=== PATIENT | female | born 1950 ===

== ENCOUNTER 2020-06-20 17:55 | Inpatient (IN) | payer MEDICARE, OTHER ==
[2020-06-20 20:23] VITALS: BMI 22.4
[2020-06-20] MEDS ORDERED: Acetaminophen 325 MG TAB PO PRN (21:48)
--- NOTE | 2020-06-20 21:57 | PDOC.HHP ---
Hospitalist HPI - History of Present Illness Shortness of breath and malaise History of Present Illness: 70-year-old woman with a history of crest syndrome, COPD was referred from her PCPs office to be directly admitted because patient tested positive for COVID. Patient report being exposed to someone with COVID-19 at work. She states that she has been experiencing general malaise, easy fatigability, increased coughing and shortness of breath for about 5 days. She went to see her PCP, had a chest x-ray done which suggested bilateral infiltrates. She tested positive for COVID-19. CTA thorax done at the office confirmed bilateral groundglass opacities consistent with COVID-19 infection. Patient was then transferred here to be directly admitted. She stated her oxygen saturation was 88% on room air in the office. At baseline she uses 2 L of oxygen at night. Hospitalist ROS - Review of Systems Other: Except as documented, all other systems reviewed and negative. - Medication Medications: Medication Instructions Recorded Confirmed Type Albuterol Sulfate [Proair HFA] 2 puff INH Q6HR PRN 06/20/20 06/20/20 History Atorvastatin Calcium [Lipitor] 40 mg PO HS 06/20/20 06/20/20 History Clobetasol [Temovate 0.05% Cream] 1 applic TOP BID 06/20/20 06/20/20 History Doxepin HCl [Sinequan] 20 mg PO HS 06/20/20 06/20/20 History Escitalopram Oxalate [Lexapro] 20 mg PO DAILY 06/20/20 06/20/20 History Estrogens, Conjugated [Premarin] 0.5 tablet PO HS 06/20/20 06/20/20 History Hydroxychloroquine Sulfate 200 mg PO BID 06/20/20 06/20/20 History [Plaquenil] Hyoscyamine Sulfate [Hyoscyamine 0.375 mg PO DAILY 06/20/20 06/20/20 History Sulfate ER] Ibuprofen 800 mg PO BID 06/20/20 06/20/20 History Levothyroxine Sodium [Synthroid] 100 mcg PO DAILY 06/20/20 06/20/20 History NIFEdipine [Nifedipine ER] 30 mg PO DAILY 06/20/20 06/20/20 History Trimethoprim 100 mg PO HS 06/20/20 06/20/20 History tiZANidine HCl [Tizanidine HCl] 4 mg PO HS PRN 06/20/20 06/20/20 History traZODone HCl [Trazodone HCl] 100 mg PO HS 06/20/20 06/20/20 History Hospitalist History - Past Medical History Other Medical History: COPD, chronic respiratory failure with hypoxia, crest syndrome, hypertension, hypothyroidism, hyperlipidemia. - Past Surgical History Past Surgical History: reports: Hysterectomy - Family History Family History: reports: cardiac disorder (Mother) - Social History Smoking Status: Former smoker Alcohol: reports: None Drugs: reports: none Living Situation: With Family - Exam General Appearance: NAD, awake alert Eye: PERRL, anicteric sclera ENT: normocephalic atraumatic, no oropharyngeal lesions, moist mucosa Neck: supple, symmetric Heart: RRR, no murmur, no gallops Respiratory: no wheezes Respiratory - other findings: Mild bibasilar Rales. Gastrointestinal: soft, non-tender, non-distended, normal bowel sounds Extremities: no cyanosis, no edema Skin: normal turgor Neurological: cranial nerve grossly intact, no weakness, no focal deficits Musculoskeletal: normal tone, normal strength Psychiatric: normal affect, normal behavior, A&O x 3 Hospitalist Results - Labs Additional comment: WBC 7.2, hemoglobin 13.2, platelet 162. Sodium 132, potassium 4.6, CO2 24, glucose 102, BUN 13, creatinine 1.1 - Radiology Interpretation CT scan - chest Status: report reviewed by me (Bilateral groundglass opacities. Emphysematous lungs. No evidence of PE.) Hospitalist H&P A/P - Problem (1) Acute and chronic respiratory failure with hypoxia Code(s): J96.21 - ACUTE AND CHRONIC RESPIRATORY FAILURE WITH HYPOXIA Status: Acute (2) Pneumonia due to COVID-19 virus Code(s): U07.1 - COVID-19; J12.89 - OTHER VIRAL PNEUMONIA Status: Acute (3) COPD (chronic obstructive pulmonary disease) Status: Acute (4) CREST syndrome Code(s): M34.1 - CR(E)ST SYNDROME Status: Acute (5) Hypertension Code(s): I10 - ESSENTIAL (PRIMARY) HYPERTENSION Status: Acute (6) Hypothyroidism Code(s): E03.9 - HYPOTHYROIDISM, UNSPECIFIED Status: Acute - Plan Plan: Placed under observation. Titrate oxygen as needed Start oral dexamethasone Scheduled bronchodilator inhalers. Check procalcitonin, ferritin, CRP for baseline studies. Droplet isolation Continue hydroxychloroquine for crest syndrome. Continue other home medications for hypertension and hypothyroidism.
[2020-06-20] MEDS ORDERED: tiZANidine HCl 4 MG TAB PO PRN (23:18)
[2020-06-21] MEDS: Albuterol 200 PUFF (6.7GM INHALER) INH SCH ×4 (01:04→18:11)
--- NOTE | 2020-06-21 05:51 | PDOC.FMACP ---
Advance Care Planning - Problem (1) Acute and chronic respiratory failure with hypoxia Status: Acute Code(s): J96.21 - ACUTE AND CHRONIC RESPIRATORY FAILURE WITH HYPOXIA (2) Pneumonia due to COVID-19 virus Status: Acute Code(s): U07.1 - COVID-19; J12.89 - OTHER VIRAL PNEUMONIA (3) COPD (chronic obstructive pulmonary disease) Status: Acute (4) CREST syndrome Status: Acute Code(s): M34.1 - CR(E)ST SYNDROME (5) Hypertension Status: Acute Code(s): I10 - ESSENTIAL (PRIMARY) HYPERTENSION (6) Hypothyroidism Status: Acute Code(s): E03.9 - HYPOTHYROIDISM, UNSPECIFIED - Note Summary: Advanced Care Planning was discussed. The diagnosis, prognosis and goals of care were discussed. Appropriate forms and documentation to accomplish the goals of care were discussed. All questions were answered. Patient is full code. Time Spent (mins): 16
[2020-06-21] MEDS: Levothyroxine Sodium 100 MCG TAB PO SCH (06:01)
[2020-06-21 06:11] LABS: #Lymphocytes 0.4 thou/uL (1.20-3.40); #Monocytes 0.4 thou/uL (0.11-0.59); #Neutrophils 2.1 thou/uL (1.40-6.50); %Basophils 0.7 % (0.0-1.0); %Eosinophils 0.1 % (0.0-10.0); %Lymphocytes 14.1 % (21.0-51.0); %Monocytes 13.1 % (0.0-10.0); %Neutrophils 72.1 % (42.0-75.0); Hemoglobin 12.6 g/dL (12.0-16.0); Mean Corpuscular HGB CONC 34.1 g/dL (32.0-36.0); Mean Corpuscular Hemoglobin 36.3 pg (27.0-31.0); Mean Platelet Volume 9.4 fL (7.4-10.4); Platelet Count 174 thou/uL (130-400); RBC Distribution Width 11.5 % (11.5-14.5); Red Blood Cell (RBC) Count 3.47 mill/uL (4.20-5.40)
[2020-06-21 06:13] LABS: Anion Gap 16 mmol/L (10-20); BUN (Urea Nitrogen) 12 mg/dL (9.8-20.1); Calc. Creatinine Clearance 59 mL/min (70-130); Calcium 9.1 mg/dL (7.8-10.44); Carbon Dioxide 22 mmol/L (23-31); Chloride 105 mmol/L (98-107); Estimated GFR-MDRD 65; Glucose 125 mg/dL (80-115); Potassium 4.6 mmol/L (3.5-5.1); Sodium 138 mmol/L (136-145)
[2020-06-21] MEDS: Zinc Sulfate 220 MG CAP PO SCH (08:08)
[2020-06-21] MEDS: Dexamethasone 4 MG TAB PO SCH (08:08)
[2020-06-21] MEDS: Hyoscyamine Sulfate ER 0.375 mg Tablet PO SCH (08:08)
[2020-06-21] MEDS: Hydroxychloroquine Sulfate 200 MG TAB PO SCH ×2 (08:09→21:44)
[2020-06-21] MEDS: Ascorbic Acid 500 mg Chewable Tablet PO SCH (08:09)
[2020-06-21] MEDS: Escitalopram Oxalate 20 mg Tablet PO SCH (08:09)
[2020-06-21] MEDS ORDERED: Enoxaparin Sodium 40 MG/0.4 ML SYRINGE SC SCH (09:00)
[2020-06-21] MEDS ORDERED: Cholecalciferol (Vitamin D3) 400 UNITS TAB PO SCH (09:00)
[2020-06-21] MEDS: NIFEdipine XL 30 MG TAB PO SCH (09:47)
[2020-06-21 14:01] LABS: ALT (SGPT) 12 U/L (8-55); AST (SGOT) 27 U/L (5-34); Albumin 3.7 g/dL (3.4-4.8); Alkaline Phosphatase 80 U/L (40-110); Bilirubin, Direct 0.2 mg/dL (0.1-0.3); Bilirubin, Total 0.4 mg/dL (0.2-1.2); Protein, Total 7.1 g/dL (6.0-8.3)
--- NOTE | 2020-06-21 14:51 | PDOC.HOSPP ---
- Subjective Encounter Date: 06/21/20 Encounter Time: 08:30 Subjective: Patient seen for follow-up for COVID-19 pneumonia. She reports feeling better. Slight cough, nonproductive. - Objective Vital Signs & Weight: Vital Signs (12 hours) Temp Pulse Resp BP BP Pulse Ox 06/21/20 09:47 97.9 F 69 18 134/77 134/77 95 Weight Admit Weight 135 lb Weight 135 lb I&O: 06/20/20 06/21/20 06/22/20 06:59 06:59 06:59 Intake Total 800 Balance 800 Result Diagrams: 06/21/20 05:10 06/21/20 05:10 Additional Labs: I reviewed patient's labs and [facility] Hospitalist ROS - Review of Systems Respiratory: reports: cough, dry. denies: shortness of breath, hemoptysis, SOB with excertion, pleuritic pain, sputum, wheezing Cardiovascular: denies: chest pain, palpitations, orthopnea, paroxysmal noc. dyspnea, edema, light headedness Gastrointestinal: denies: nausea, vomiting, abdominal pain, diarrhea, constipation, melena, hematochezia Genitourinary: denies: dysuria, frequency, incontinence, hematuria, retention Skin: denies: rash, lesions, nia, bruising - Medication Medications: Active Medications Generic Name Dose Route Start Last Admin Trade Name Freq PRN Reason Stop Dose Admin Albuterol Sulfate 2 puff 06/21/20 01:00 06/21/20 13:00 Albuterol 200 Puff (6.7gm Inhaler) INH 2 puff [id number] ALY Administration Ascorbic Acid 1,000 mg 06/21/20 09:00 06/21/20 08:09 Ascorbic Acid 500 Mg Chewable Tablet PO 1,000 mg DAILY ALY Administration Cholecalciferol 1,000 units 06/21/20 09:00 06/21/20 08:07 Cholecalciferol (Vitamin D3) 400 Units Tab PO 1,000 units DAILY ALY Administration Dexamethasone 6 mg 06/21/20 08:00 06/21/20 08:08 Dexamethasone 4 Mg Tab PO 6 mg QAM-WM ALY Administration Escitalopram Oxalate 20 mg 06/21/20 09:00 06/21/20 08:09 Escitalopram Oxalate 20 Mg Tablet PO 20 mg DAILY ALY Administration Hydroxychloroquine Sulfate 200 mg 06/21/20 09:00 06/21/20 08:09 Hydroxychloroquine Sulfate 200 Mg Tab PO 200 mg BID ALY Administration Hyoscyamine Sulfate 0.375 mg 06/21/20 09:00 06/21/20 08:08 Hyoscyamine Sulfate Er 0.375 Mg Tablet PO 0.375 mg DAILY ALY Administration Levothyroxine Sodium 100 mcg 06/21/20 06:00 06/21/20 06:01 Levothyroxine Sodium 100 Mcg Tab PO 100 mcg 0600 ALY Administration Nifedipine 30 mg 06/21/20 09:00 06/21/20 09:47 Nifedipine Xl 30 Mg Tab PO 30 mg DAILY ALY Administration Zinc Sulfate 220 mg 06/21/20 09:00 06/21/20 08:08 Zinc Sulfate 220 Mg Cap PO 220 mg DAILY ALY Administration - Exam General Appearance: awake alert Eye: anicteric sclera ENT: moist mucosa Neck: supple, symmetric, no thyromegaly, no lymphadenopathy Heart: RRR, no gallops, no rubs, normal peripheral pulses Respiratory: CTAB, no rales, no ronchi, normal chest expansion Gastrointestinal: soft, non-tender, non-distended, normal bowel sounds Skin: no rashes Psychiatric: normal affect, normal behavior, A&O x 3 Hosp A/P (1) Pneumonia due to COVID-19 virus Code(s): U07.1 - COVID-19; J12.89 - OTHER VIRAL PNEUMONIA Status: Acute (2) Acute on chronic respiratory failure with hypoxia Code(s): J96.21 - ACUTE AND CHRONIC RESPIRATORY FAILURE WITH HYPOXIA Status: Acute (3) COPD (chronic obstructive pulmonary disease) Status: Chronic (4) CREST syndrome Code(s): M34.1 - CR(E)ST SYNDROME Status: Chronic (5) Hypertension Code(s): I10 - ESSENTIAL (PRIMARY) HYPERTENSION Status: Chronic (6) Hypothyroidism Code(s): E03.9 - HYPOTHYROIDISM, UNSPECIFIED Status: Chronic - Plan Patient has been started on dexamethasone 6 mg daily, continue. Continue vitamin C thousand milligrams daily and zinc 220 mg daily. Continue Synthroid. Supplemental oxygen as needed, patient uses 2 L of oxygen at home but only at nighttime. Hypertension is controlled. Infectious disease service consulted for opinion and help with management.
[2020-06-21] MEDS ORDERED: REMDESIVIR (EUA) 200 MG in Sodium Chloride 0.9% 250 ML 210 ML IV SCH (18:00)
--- NOTE | 2020-06-21 20:24 | CON ---
DATE OF CONSULTATION: 06/21/2020 REASON FOR CONSULTATION: COVID infection. HISTORY OF PRESENT ILLNESS: A 70-year-old with history of CREST syndrome, COPD, who developed symptoms of cough, respiratory distress, exercise intolerance for the past 4 to 5 days. Had a chest x-ray and tested positive for COVID-19. CTA showed ground-glass opacities and she has been admitted. O2 saturations on arrival 88% on room air. She usually uses 2 L of oxygen at night for sleep. MEDICAL HISTORY: COPD, CREST syndrome, hypertension, hypothyroidism, hyperlipidemia. PAST SURGICAL HISTORY: Hysterectomy. FAMILY HISTORY: Noncontributory. SOCIAL HISTORY: Works at the [employer]. Former smoker. Does not drink. Lives in with family. CURRENT MEDICATIONS: 1. Proventil. 2. Vitamin C and D. 3. Decadron. 4. Sinequan. 5. Lovenox b.i.d. 6. Lexapro. 7. Plaquenil. 8. Synthroid. 9. Procardia. 10. Pneumovax. 11. Zanaflex. 12. Desyrel. 13. Trimethoprim. 14. Zinc sulfate. ALLERGIES: CHEESE AND METHOCARBAMOL. PHYSICAL EXAMINATION: VITAL SIGNS: Afebrile since admission, O2 saturation 95% on 2 L, heart rate 69, blood pressure 130/70. GENERAL: Does not appear in distress. SKIN: Normal. LYMPHATIC: No lymphadenopathy. HEENT: Ocular movements conjugate. Oral cavity normal. NECK: Supple. LUNGS: Symmetric. Clear breath sounds. HEART: S1 and S2. Regular rate without murmurs. No S3 or S4. ABDOMEN: Soft. Not distended or tender. No ascites. No bladder distention. EXTREMITIES: No joint inflammatory activity. Skin appears pretty normal. She has a little bit of stasis dermatitis. The areas of hyperpigmentation in extensor aspect of the extremities. NEUROLOGIC: Cognitive function appears to be intact. Neuro examination normal. LABORATORY DATA: White cell count 3.0, hemoglobin 12.6, MCV 106, platelet count 174 with lymphocytopenia 0.4. D-dimer 2.0. Ferritin wnl. CRP 8.56. Procalcitonin 0.06. CT chest with ground-glass opacities. I do not have the images here to review. ASSESSMENT AND PLAN: CREST syndrome, chronic obstructive pulmonary disease, COVID infection [id number] course. We will start remdesivir, daily labs. Continue Decadron. Enoxaparin prophylaxis. [address] consortium mortality score is around 05/07. This is an intermediate category. Job ID: [id number] [facility]
[2020-06-21] MEDS: Doxepin HCl 10 MG CAP PO SCH (21:43)
[2020-06-21] MEDS: Enoxaparin Sodium 40 MG/0.4 ML SYRINGE SC SCH (21:44)
[2020-06-21] MEDS: traZODone HCl 50 MG TAB PO SCH (21:44)
[2020-06-22] MEDS: Albuterol 200 PUFF (6.7GM INHALER) INH SCH ×4 (01:21→19:58)
[2020-06-22] MEDS: Levothyroxine Sodium 100 MCG TAB PO SCH (05:27)
[2020-06-22 06:22] LABS: ALT (SGPT) 11 U/L (8-55); AST (SGOT) 19 U/L (5-34); Albumin 3.5 g/dL (3.4-4.8); Alkaline Phosphatase 71 U/L (40-110); Bilirubin, Direct 0.1 mg/dL (0.1-0.3); Bilirubin, Total 0.2 mg/dL (0.2-1.2); Protein, Total 6.6 g/dL (6.0-8.3)
[2020-06-22] MEDS: NIFEdipine XL 30 MG TAB PO SCH (09:18)
[2020-06-22] MEDS: Hyoscyamine Sulfate ER 0.375 mg Tablet PO SCH (09:18)
[2020-06-22] MEDS: Cholecalciferol 1,000 UNITS (25 MCG) TAB PO SCH (09:19)
[2020-06-22] MEDS: Ascorbic Acid 500 mg Chewable Tablet PO SCH (09:19)
[2020-06-22] MEDS: Hydroxychloroquine Sulfate 200 MG TAB PO SCH ×2 (09:21→19:59)
[2020-06-22] MEDS: Zinc Sulfate 220 MG CAP PO SCH (09:21)
[2020-06-22] MEDS: Escitalopram Oxalate 20 mg Tablet PO SCH (09:21)
[2020-06-22] MEDS: Dexamethasone 4 MG TAB PO SCH (09:21)
[2020-06-22] MEDS: Enoxaparin Sodium 40 MG/0.4 ML SYRINGE SC SCH ×2 (09:22→19:59)
[2020-06-22 10:07] LABS: Anion Gap 13 mmol/L (10-20); BUN (Urea Nitrogen) 18 mg/dL (9.8-20.1); CRP (Inflammatory) 2.98 mg/dL (= or < 0.5); Calc. Creatinine Clearance 62 mL/min (70-130); Calcium 8.8 mg/dL (7.8-10.44); Carbon Dioxide 25 mmol/L (23-31); Chloride 107 mmol/L (98-107); Estimated GFR-MDRD 68; Glucose 99 mg/dL (80-115); Potassium 3.9 mmol/L (3.5-5.1); Sodium 141 mmol/L (136-145)
--- NOTE | 2020-06-22 14:34 | PDOC.HOSPP ---
- Subjective Encounter Date: 06/22/20 Encounter Time: 11:20 Subjective: Patient seen for follow-up regarding COVID-19 pneumonia. Reports feeling well. - Objective Vital Signs & Weight: Vital Signs (12 hours) Pulse Pulse Ox 06/22/20 09:18 70 06/22/20 09:00 95 Weight Admit Weight 135 lb Weight 135 lb I&O: 06/21/20 06/22/20 06/23/20 06:59 06:59 06:59 Intake Total 800 1850 Balance 800 1850 Result Diagrams: 06/21/20 05:10 06/22/20 09:34 Additional Labs: I reviewed patient's labs and [facility] Hospitalist ROS - Review of Systems Respiratory: denies: cough, shortness of breath, SOB with excertion, pleuritic pain, wheezing Cardiovascular: denies: chest pain, palpitations, orthopnea, paroxysmal noc. dyspnea, edema, light headedness - Medication Medications: Active Medications Generic Name Dose Route Start Last Admin Trade Name Freq PRN Reason Stop Dose Admin Albuterol Sulfate 2 puff 06/21/20 01:00 06/22/20 05:28 Albuterol 200 Puff (6.7gm Inhaler) INH 2 puff [id number] ALY Administration Ascorbic Acid 1,000 mg 06/21/20 09:00 06/22/20 09:19 Ascorbic Acid 500 Mg Chewable Tablet PO 1,000 mg DAILY ALY Administration Cholecalciferol 1,000 units 06/22/20 09:00 06/22/20 09:19 Cholecalciferol 1,000 Units (25 Mcg) Tab PO 1,000 units DAILY ALY Administration Dexamethasone 6 mg 06/21/20 08:00 06/22/20 09:21 Dexamethasone 4 Mg Tab PO 6 mg QAM-WM ALY Administration Doxepin HCl 20 mg 06/21/20 21:00 06/21/20 21:43 Doxepin Hcl 10 Mg Cap PO 20 mg HS ALY Administration Enoxaparin Sodium 40 mg 06/21/20 21:00 06/22/20 09:22 Enoxaparin Sodium 40 Mg/0.4 Ml Syringe SC 40 mg 0900,2100 ALY Administration Escitalopram Oxalate 20 mg 06/21/20 09:00 06/22/20 09:21 Escitalopram Oxalate 20 Mg Tablet PO 20 mg DAILY ALY Administration Hydroxychloroquine Sulfate 200 mg 06/21/20 09:00 06/22/20 09:21 Hydroxychloroquine Sulfate 200 Mg Tab PO 200 mg BID ALY Administration Hyoscyamine Sulfate 0.375 mg 06/21/20 09:00 06/22/20 09:18 Hyoscyamine Sulfate Er 0.375 Mg Tablet PO 0.375 mg DAILY ALY Administration Levothyroxine Sodium 100 mcg 06/21/20 06:00 06/22/20 05:27 Levothyroxine Sodium 100 Mcg Tab PO 100 mcg 0600 ALY Administration Nifedipine 30 mg 06/21/20 09:00 06/22/20 09:18 Nifedipine Xl 30 Mg Tab PO 30 mg DAILY ALY Administration Trazodone HCl 100 mg 06/21/20 21:00 06/21/20 21:44 Trazodone Hcl 50 Mg Tab PO 100 mg HS ALY Administration Trimethoprim 100 mg 06/21/20 21:00 06/21/20 21:44 Trimethoprim 100 Mg Tab PO 100 mg HS ALY Administration Zinc Sulfate 220 mg 06/21/20 09:00 06/22/20 09:21 Zinc Sulfate 220 Mg Cap PO 220 mg DAILY ALY Administration - Exam General Appearance: awake alert Eye: anicteric sclera ENT: moist mucosa Neck: supple Heart: RRR Respiratory: CTAB Gastrointestinal: soft, non-tender Extremities: no cyanosis Skin: normal turgor Psychiatric: normal affect, normal behavior Hosp A/P (1) Pneumonia due to COVID-19 virus Code(s): U07.1 - COVID-19; J12.89 - OTHER VIRAL PNEUMONIA Status: Acute (2) Acute on chronic respiratory failure with hypoxia Code(s): J96.21 - ACUTE AND CHRONIC RESPIRATORY FAILURE WITH HYPOXIA Status: Acute (3) COPD (chronic obstructive pulmonary disease) Status: Chronic (4) CREST syndrome Code(s): M34.1 - CR(E)ST SYNDROME Status: Chronic (5) Hypertension Code(s): I10 - ESSENTIAL (PRIMARY) HYPERTENSION Status: Chronic (6) Hypothyroidism Code(s): E03.9 - HYPOTHYROIDISM, UNSPECIFIED Status: Chronic - Plan Continue dexamethasone, vitamin C and zinc. Patient has been started on Remdesivir. Continue Synthroid. Supplemental oxygen as needed. Hypertension is controlled. Appreciate infectious disease service input.
[2020-06-22] MEDS: REMDESIVIR (EUA) 100 MG in Sodium Chloride 0.9% 250 ML 230 ML IV SCH (18:36)
[2020-06-22] MEDS: Doxepin HCl 10 MG CAP PO SCH (19:58)
[2020-06-22] MEDS: traZODone HCl 50 MG TAB PO SCH (19:59)
[2020-06-23] MEDS: Albuterol 200 PUFF (6.7GM INHALER) INH SCH ×4 (00:28→19:38)
[2020-06-23] MEDS: Levothyroxine Sodium 100 MCG TAB PO SCH (05:47)
[2020-06-23 05:54] LABS: ALT (SGPT) 9 U/L (8-55); AST (SGOT) 19 U/L (5-34); Albumin 3.2 g/dL (3.4-4.8); Alkaline Phosphatase 70 U/L (40-110); Bilirubin, Direct 0.1 mg/dL (0.1-0.3); Bilirubin, Total 0.3 mg/dL (0.2-1.2); Protein, Total 6.2 g/dL (6.0-8.3)
[2020-06-23] MEDS: Escitalopram Oxalate 20 mg Tablet PO SCH (08:50)
[2020-06-23] MEDS: Hydroxychloroquine Sulfate 200 MG TAB PO SCH ×2 (08:50→19:40)
[2020-06-23] MEDS: Dexamethasone 4 MG TAB PO SCH (08:51)
[2020-06-23] MEDS: NIFEdipine XL 30 MG TAB PO SCH (08:51)
[2020-06-23] MEDS: Cholecalciferol 1,000 UNITS (25 MCG) TAB PO SCH (08:51)
[2020-06-23] MEDS: Hyoscyamine Sulfate ER 0.375 mg Tablet PO SCH (08:52)
[2020-06-23] MEDS: Ascorbic Acid 500 mg Chewable Tablet PO SCH (08:53)
[2020-06-23] MEDS: Enoxaparin Sodium 40 MG/0.4 ML SYRINGE SC SCH ×2 (08:53→19:39)
[2020-06-23] MEDS: Zinc Sulfate 220 MG CAP PO SCH (08:53)
[2020-06-23 09:42] LABS: Anion Gap 12 mmol/L (10-20); BUN (Urea Nitrogen) 20 mg/dL (9.8-20.1); CRP (Inflammatory) 1.94 mg/dL (= or < 0.5); Calc. Creatinine Clearance 62 mL/min (70-130); Carbon Dioxide 26 mmol/L (23-31); Chloride 105 mmol/L (98-107); Estimated GFR-MDRD 68; Glucose 76 mg/dL (80-115); Potassium 3.7 mmol/L (3.5-5.1); Sodium 139 mmol/L (136-145)
--- NOTE | 2020-06-23 17:49 | PDOC.HOSPP ---
- Subjective Encounter Date: 06/23/20 Encounter Time: 11:40 Subjective: Patient seen for follow-up regarding COVID-19 pneumonia. Denies any new complaints. - Objective Vital Signs & Weight: Vital Signs (12 hours) Temp Pulse Resp BP BP Pulse Ox 06/23/20 08:51 93 120/80 06/23/20 08:00 98.3 F 91 17 118/74 96 Weight Admit Weight 135 lb Weight 135 lb I&O: 06/22/20 06/23/20 06/24/20 06:59 06:59 06:59 Intake Total 1850 1520 Balance 1850 1520 Result Diagrams: 06/21/20 05:10 06/23/20 08:53 Additional Labs: I reviewed labs and MAR Hospitalist ROS - Review of Systems Respiratory: denies: cough, shortness of breath, SOB with excertion, pleuritic pain, wheezing Gastrointestinal: denies: nausea, vomiting, abdominal pain, diarrhea, constipation, melena, hematochezia Genitourinary: denies: dysuria, frequency, incontinence, hematuria, retention - Medication Medications: Active Medications Generic Name Dose Route Start Last Admin Trade Name Freq PRN Reason Stop Dose Admin Albuterol Sulfate 2 puff 06/21/20 01:00 06/23/20 12:35 Albuterol 200 Puff (6.7gm Inhaler) INH 2 puff [id number] ALY Administration Ascorbic Acid 1,000 mg 06/21/20 09:00 06/23/20 08:53 Ascorbic Acid 500 Mg Chewable Tablet PO 1,000 mg DAILY ALY Administration Cholecalciferol 1,000 units 06/22/20 09:00 06/23/20 08:51 Cholecalciferol 1,000 Units (25 Mcg) Tab PO 1,000 units DAILY ALY Administration Dexamethasone 6 mg 06/21/20 08:00 06/23/20 08:51 Dexamethasone 4 Mg Tab PO 6 mg QAM-WM ALY Administration Doxepin HCl 20 mg 06/21/20 21:00 06/22/20 19:58 Doxepin Hcl 10 Mg Cap PO 20 mg HS ALY Administration Enoxaparin Sodium 40 mg 06/21/20 21:00 06/23/20 08:53 Enoxaparin Sodium 40 Mg/0.4 Ml Syringe SC 40 mg 0900,2100 ALY Administration Escitalopram Oxalate 20 mg 06/21/20 09:00 06/23/20 08:50 Escitalopram Oxalate 20 Mg Tablet PO 20 mg DAILY ALY Administration Hydroxychloroquine Sulfate 200 mg 06/21/20 09:00 06/23/20 08:50 Hydroxychloroquine Sulfate 200 Mg Tab PO 200 mg BID ALY Administration Hyoscyamine Sulfate 0.375 mg 06/21/20 09:00 06/23/20 08:52 Hyoscyamine Sulfate Er 0.375 Mg Tablet PO 0.375 mg DAILY ALY Administration Remdesivir 100 mg/ Sodium 250 mls @ 250 mls/hr 06/22/20 18:00 06/22/20 18:36 Chloride IV 06/25/20 18:59 250 mls 1800 ALY Administration Levothyroxine Sodium 100 mcg 06/21/20 06:00 06/23/20 05:47 Levothyroxine Sodium 100 Mcg Tab PO 100 mcg 0600 ALY Administration Nifedipine 30 mg 06/21/20 09:00 06/23/20 08:51 Nifedipine Xl 30 Mg Tab PO 30 mg DAILY ALY Administration Trazodone HCl 100 mg 06/21/20 21:00 06/22/20 19:59 Trazodone Hcl 50 Mg Tab PO 100 mg HS ALY Administration Trimethoprim 100 mg 06/21/20 21:00 06/22/20 19:59 Trimethoprim 100 Mg Tab PO 100 mg HS ALY Administration Zinc Sulfate 220 mg 06/21/20 09:00 06/23/20 08:53 Zinc Sulfate 220 Mg Cap PO 220 mg DAILY ALY Administration - Exam General Appearance: awake alert Eye: anicteric sclera ENT: normocephalic atraumatic, moist mucosa Neck: supple, no thyromegaly Heart: RRR Respiratory: CTAB Gastrointestinal: soft, normal bowel sounds Extremities: no cyanosis Skin: no rashes Musculoskeletal: normal tone Psychiatric: normal affect, normal behavior Hosp A/P (1) Pneumonia due to COVID-19 virus Code(s): U07.1 - COVID-19; J12.89 - OTHER VIRAL PNEUMONIA Status: Acute (2) Acute on chronic respiratory failure with hypoxia Code(s): J96.21 - ACUTE AND CHRONIC RESPIRATORY FAILURE WITH HYPOXIA Status: Acute (3) CREST syndrome Code(s): M34.1 - CR(E)ST SYNDROME Status: Chronic (4) COPD (chronic obstructive pulmonary disease) Status: Chronic (5) Hypothyroidism Code(s): E03.9 - HYPOTHYROIDISM, UNSPECIFIED Status: Chronic (6) Hypertension Code(s): I10 - ESSENTIAL (PRIMARY) HYPERTENSION Status: Chronic - Plan Patient is currently on dexamethasone, vitamin C and zinc. Patient is also on Remdesivir, continue until June 25, 2020. Upper thyroidism stable Supplemental oxygen as needed. Hypertension is controlled. Home once Remdesivir therapy is complete and patient is clinically stable
[2020-06-23] MEDS: REMDESIVIR (EUA) 100 MG in Sodium Chloride 0.9% 250 ML 230 ML IV SCH (18:01)
[2020-06-23] MEDS: Doxepin HCl 10 MG CAP PO SCH (19:39)
[2020-06-23] MEDS: traZODone HCl 50 MG TAB PO SCH (19:40)
[2020-06-24] MEDS: Albuterol 200 PUFF (6.7GM INHALER) INH SCH ×4 (00:19→19:01)
[2020-06-24] MEDS: Levothyroxine Sodium 100 MCG TAB PO SCH (05:55)
[2020-06-24 07:12] LABS: ALT (SGPT) 16 U/L (8-55); AST (SGOT) 26 U/L (5-34); Albumin 3.1 g/dL (3.4-4.8); Alkaline Phosphatase 63 U/L (40-110); Bilirubin, Direct 0.1 mg/dL (0.1-0.3); Bilirubin, Total 0.2 mg/dL (0.2-1.2); Protein, Total 5.7 g/dL (6.0-8.3)
[2020-06-24 07:53] LABS: Anion Gap 12 mmol/L (10-20); BUN (Urea Nitrogen) 21 mg/dL (9.8-20.1); CRP (Inflammatory) 1.16 mg/dL (= or < 0.5); Calc. Creatinine Clearance 61 mL/min (70-130); Calcium 8.4 mg/dL (7.8-10.44); Carbon Dioxide 25 mmol/L (23-31); Chloride 108 mmol/L (98-107); Estimated GFR-MDRD 67; Glucose 74 mg/dL (80-115); Potassium 4.2 mmol/L (3.5-5.1); Sodium 141 mmol/L (136-145)
[2020-06-24] MEDS: NIFEdipine XL 30 MG TAB PO SCH (08:58)
[2020-06-24] MEDS: Escitalopram Oxalate 20 mg Tablet PO SCH (08:59)
[2020-06-24] MEDS: Ascorbic Acid 500 mg Chewable Tablet PO SCH (08:59)
[2020-06-24] MEDS: Dexamethasone 4 MG TAB PO SCH (08:59)
[2020-06-24] MEDS: Hydroxychloroquine Sulfate 200 MG TAB PO SCH ×2 (08:59→19:49)
[2020-06-24] MEDS: Hyoscyamine Sulfate ER 0.375 mg Tablet PO SCH (09:00)
[2020-06-24] MEDS: Enoxaparin Sodium 40 MG/0.4 ML SYRINGE SC SCH ×2 (09:00→19:48)
[2020-06-24] MEDS: Cholecalciferol 1,000 UNITS (25 MCG) TAB PO SCH (09:00)
[2020-06-24] MEDS: Zinc Sulfate 220 MG CAP PO SCH (09:01)
--- NOTE | 2020-06-24 17:52 | PDOC.HOSPP ---
- Subjective Encounter Date: 06/24/20 Encounter Time: 11:00 Subjective: Patient seen for follow-up regarding pneumonia secondary to COVID-19 virus. Denies any new complaints. - Objective Vital Signs & Weight: Vital Signs (12 hours) Temp Pulse Resp BP Pulse Ox 06/24/20 08:58 85 06/24/20 08:00 98.4 F 77 20 113/67 95 Weight Admit Weight 135 lb Weight 135 lb I&O: 06/23/20 06/24/20 06/25/20 06:59 06:59 06:59 Intake Total 1520 1520 720 Balance 1520 1520 720 Result Diagrams: 06/21/20 05:10 06/24/20 06:00 Additional Labs: I reviewed patient's labs and MAR Hospitalist ROS - Review of Systems Respiratory: denies: cough, shortness of breath, SOB with excertion, pleuritic pain, wheezing Cardiovascular: denies: chest pain, palpitations, orthopnea, paroxysmal noc. dyspnea, edema, light headedness - Medication Medications: Active Medications Generic Name Dose Route Start Last Admin Trade Name Freq PRN Reason Stop Dose Admin Albuterol Sulfate 2 puff 06/21/20 01:00 06/24/20 05:55 Albuterol 200 Puff (6.7gm Inhaler) INH 2 puff [id number] ALY Administration Ascorbic Acid 1,000 mg 06/21/20 09:00 06/24/20 08:59 Ascorbic Acid 500 Mg Chewable Tablet PO 1,000 mg DAILY ALY Administration Cholecalciferol 1,000 units 06/22/20 09:00 06/24/20 09:00 Cholecalciferol 1,000 Units (25 Mcg) Tab PO 1,000 units DAILY ALY Administration Dexamethasone 6 mg 06/21/20 08:00 06/24/20 08:59 Dexamethasone 4 Mg Tab PO 6 mg QAM-WM ALY Administration Doxepin HCl 20 mg 06/21/20 21:00 06/23/20 19:39 Doxepin Hcl 10 Mg Cap PO 20 mg HS ALY Administration Enoxaparin Sodium 40 mg 06/21/20 21:00 06/24/20 09:00 Enoxaparin Sodium 40 Mg/0.4 Ml Syringe SC 40 mg 0900,2100 ALY Administration Escitalopram Oxalate 20 mg 06/21/20 09:00 06/24/20 08:59 Escitalopram Oxalate 20 Mg Tablet PO 20 mg DAILY ALY Administration Hydroxychloroquine Sulfate 200 mg 06/21/20 09:00 06/24/20 08:59 Hydroxychloroquine Sulfate 200 Mg Tab PO 200 mg BID ALY Administration Hyoscyamine Sulfate 0.375 mg 06/21/20 09:00 06/24/20 09:00 Hyoscyamine Sulfate Er 0.375 Mg Tablet PO 0.375 mg DAILY ALY Administration Remdesivir 100 mg/ Sodium 250 mls @ 250 mls/hr 06/22/20 18:00 06/23/20 18:01 Chloride IV 06/25/20 18:59 250 mls 1800 LAY Administration Levothyroxine Sodium 100 mcg 06/21/20 06:00 06/24/20 05:55 Levothyroxine Sodium 100 Mcg Tab PO 100 mcg 0600 ALY Administration Nifedipine 30 mg 06/21/20 09:00 06/24/20 08:58 Nifedipine Xl 30 Mg Tab PO 30 mg DAILY ALY Administration Trazodone HCl 100 mg 06/21/20 21:00 06/23/20 19:40 Trazodone Hcl 50 Mg Tab PO 100 mg HS ALY Administration Trimethoprim 100 mg 06/21/20 21:00 06/23/20 19:40 Trimethoprim 100 Mg Tab PO 100 mg HS ALY Administration Zinc Sulfate 220 mg 06/21/20 09:00 06/24/20 09:01 Zinc Sulfate 220 Mg Cap PO 220 mg DAILY ALY Administration - Exam General Appearance: awake alert Eye: PERRL, anicteric sclera ENT: normocephalic atraumatic, no oropharyngeal lesions, moist mucosa Neck: supple Heart: RRR Respiratory: CTAB, no wheezes Gastrointestinal: soft Skin: no rashes Psychiatric: normal affect Hosp A/P (1) Pneumonia due to COVID-19 virus Code(s): U07.1 - COVID-19; J12.89 - OTHER VIRAL PNEUMONIA Status: Acute (2) Acute on chronic respiratory failure with hypoxia Code(s): J96.21 - ACUTE AND CHRONIC RESPIRATORY FAILURE WITH HYPOXIA Status: Acute (3) CREST syndrome Code(s): M34.1 - CR(E)ST SYNDROME Status: Chronic (4) Hypertension Code(s): I10 - ESSENTIAL (PRIMARY) HYPERTENSION Status: Chronic (5) COPD (chronic obstructive pulmonary disease) Status: Chronic (6) Hypothyroidism Code(s): E03.9 - HYPOTHYROIDISM, UNSPECIFIED Status: Chronic - Plan Continue dexamethasone, vitamin C and zinc. Remdesivir ends tomorrow. hypothyroidism stable Supplemental oxygen as needed. Hypertension is controlled. Continue home 24 to 48 hours
[2020-06-24] MEDS: REMDESIVIR (EUA) 100 MG in Sodium Chloride 0.9% 250 ML 230 ML IV SCH (18:26)
[2020-06-24] MEDS: Doxepin HCl 10 MG CAP PO SCH (19:48)
[2020-06-24] MEDS: traZODone HCl 50 MG TAB PO SCH (19:49)
[2020-06-25] MEDS: Albuterol 200 PUFF (6.7GM INHALER) INH SCH ×4 (00:30→18:40)
[2020-06-25] MEDS: Levothyroxine Sodium 100 MCG TAB PO SCH (05:07)
[2020-06-25 06:42] LABS: ALT (SGPT) 41 U/L (8-55); AST (SGOT) 47 U/L (5-34); Alkaline Phosphatase 67 U/L (40-110); Bilirubin, Direct 0.1 mg/dL (0.1-0.3); Bilirubin, Total 0.2 mg/dL (0.2-1.2); Protein, Total 5.7 g/dL (6.0-8.3)
[2020-06-25] MEDS: Enoxaparin Sodium 40 MG/0.4 ML SYRINGE SC SCH (08:34)
[2020-06-25] MEDS: Hydroxychloroquine Sulfate 200 MG TAB PO SCH (08:34)
[2020-06-25] MEDS: Dexamethasone 4 MG TAB PO SCH (08:35)
[2020-06-25] MEDS: Hyoscyamine Sulfate ER 0.375 mg Tablet PO SCH (08:36)
[2020-06-25] MEDS: Ascorbic Acid 500 mg Chewable Tablet PO SCH (08:36)
[2020-06-25] MEDS: Escitalopram Oxalate 20 mg Tablet PO SCH (08:36)
[2020-06-25] MEDS: Cholecalciferol 1,000 UNITS (25 MCG) TAB PO SCH (08:36)
[2020-06-25] MEDS: NIFEdipine XL 30 MG TAB PO SCH (08:36)
[2020-06-25 10:35] LABS: Anion Gap 10 mmol/L (10-20); BUN (Urea Nitrogen) 20 mg/dL (9.8-20.1); CRP (Inflammatory) 0.99 mg/dL (= or < 0.5); Calc. Creatinine Clearance 63 mL/min (70-130); Calcium 8.8 mg/dL (7.8-10.44); Carbon Dioxide 28 mmol/L (23-31); Chloride 106 mmol/L (98-107); Estimated GFR-MDRD 70; Glucose 88 mg/dL (80-115); Potassium 3.5 mmol/L (3.5-5.1); Sodium 140 mmol/L (136-145)
[2020-06-25] MEDS: Zinc Sulfate 220 MG CAP PO SCH (11:50)
[2020-06-25 17:21] VITALS: BP 128/77; TEMP 98.1
[2020-06-25] MEDS: REMDESIVIR (EUA) 100 MG in Sodium Chloride 0.9% 250 ML 230 ML IV SCH (17:37)
--- NOTE | 2020-06-26 00:30 | DIS ---
DATE OF ADMISSION: 06/20/2020 DATE OF DISCHARGE: 06/25/2020 PRIMARY CARE PROVIDER: Dr. Hosea Chiang. DISCHARGE DIAGNOSES: 1. COVID-19 pneumonia. 2. Acute on chronic hypoxic respiratory failure. CONDITION OF THE PATIENT ON THE DAY OF DISCHARGE: Stable. I assessed Ms. Ascencio on the day of discharge. She denies any chest pain or shortness of breath. Vital signs are stable. S1 and S2 are heard, regular. Lungs are clear to auscultation bilaterally. CONSULTATIONS DURING THIS HOSPITALIZATION: Infectious Diseases, Dr. Garcia. DISCHARGE MEDICATIONS: 1. Dexamethasone 5 mg daily for 5 more days. 2. Vitamin C 1000 mg daily for 5 more days. 3. Zinc 220 mg daily for 5 more days. Otherwise, no change was made to her pre-admission home medications. HOSPITAL COURSE: Ms. Ascencio is a pleasant 70-year-old lady, who was admitted to [facility] on June 20, 2020, for COVID-19 pneumonia. She was also in acute on chronic hypoxic respiratory failure. She was seen by Infectious Disease Service. She was started on Remdesivir. She continued to improve. She is finishing her course of Remdesivir on the day of discharge. She was also started on dexamethasone, zinc, and vitamin C. She will complete those courses in the outpatient setting. POST ACUTE CARE FOLLOWUP: With primary care provider in 3 days. ACTIVITY: As tolerated. DIET: Heart healthy. DISCHARGE DESTINATION: Home. TIME SPENT: Total amount of time spent coordinating this discharge: 25 minutes. Job ID: [id number]
== END 2020-06-25 20:05 | disposition home or self-care (01) | DRG 177 ==
LOC: 2SW 19:32 → OBSVTOIN 19:32 → INTOOBSV 19:32 → T4-A 06-21 00:59
PROVIDERS: ADMIT Internal Medicine; ATTEND Internal Medicine
PROC: 8E0ZXY6 Isolation (ICD-10-PCS; 2020-06-20)
PROC: XW033E5 Introduction of Remdesivir Anti-infective into Peripheral Vein, Percutaneous Approach, New Technology Group 5 (ICD-10-PCS; principal; 2020-06-21)
DX: U07.1 COVID-19 (principal); J12.89 Other viral pneumonia; J96.21 Acute and chronic respiratory failure with hypoxia; J44.0 Chronic obstructive pulmonary disease with (acute) lower respiratory infection; M34.1 CR(E)ST syndrome; E03.9 Hypothyroidism, unspecified; I10 Essential (primary) hypertension; E78.5 Hyperlipidemia, unspecified; Z79.51 Long term (current) use of inhaled steroids; Z79.890 Hormone replacement therapy; Z79.899 Other long term (current) drug therapy; Z87.891 Personal history of nicotine dependence; Z90.710 Acquired absence of both cervix and uterus
CPT/HCPCS: 36415; 80048; 80076; 82728; 84145; 85025; 85379; 86140; 93005; 93010; 96372; G0378; J1650; J7050; J8540